=== PATIENT | female | born 1940 | race Caucasian/White ===

== ENCOUNTER → 2022-06-14 | Outpatient (CLI) | payer MEDICARE, BC, SELFPAY ==
[2022-06-14 15:26] LABS: Anion Gap 8 (5-15); BUN 17 mg/dL (7-18); BUN/Creat Ratio 18.3 RATIO (10-20); Calcium,Total 9.4 mg/dL (8.5-10.1); Chloride 101 mmol/L (98-107); Creatinine, Serum 0.93 mg/dL (0.55-1.02); EST Glomerular Filtration Rate 61 mL/min (>60); Est Glom Filt Rate - Afr Amer 74 mL/min (>60); Glucose 97 mg/dL (74-106); Potassium 4.4 mmol/L (3.5-5.1); Sodium Level 135 mmol/L (136-145)
== END | disposition home or self-care (01) ==
PROVIDERS: PCP Internal Medicine; Visit Provider Internal Medicine Cardiovascular Disease
DX: R40.0 Somnolence (principal); I27.20 Pulmonary hypertension, unspecified; N18.31 Chronic kidney disease, stage 3a; I35.0 Nonrheumatic aortic (valve) stenosis
CPT/HCPCS: 36415; 80048

== ENCOUNTER → 2022-06-30 | Outpatient (CLI) | payer MEDICARE, BC, SELFPAY ==
--- NOTE | 2022-06-30 10:59 | STRESSREP ---
Stress Test Report Date: 06/30/2022 Procedure: Pharmacologic stress nuclear imaging study Indications: Dyspnea Consent: Per the patient Procedure: The patient underwent pharmacologic (Regadenoson 0.4mg ) evaluation with a peak heart rate of 86 beats per minute (61%predicted maximal heart rate) and a peak blood pressure of 142/80 mmHg. The baseline ECG demonstrated normal sinus rhythm. The peak pharmacologic ECG demonstrated no ischemic changes. Rare PVCs noted. No complaints of chest discomfort during pharmacological infusion or recovery. The examination was discontinued secondary to completion of protocol. Impression: 1. Pharmacologic (Regadenoson) evaluation 2. Peak pharmacologic ECG with no ischemic changes. 3. Rare PVCs. Myocardial perfusion imaging study: Technique: The patient was injected with 11.6 millicuries of technetium 99m Cardiolite and subsequently rest SPECT Cardiolite nuclear imaging was obtained in the horizontal long, vertical long, and short axis views. The patient underwent pharmacologic (Regadenoson) evaluation. The patient was injected with 34.3 millicuries of technetium 99m Cardiolite and subsequently stress SPECT Cardiolite nuclear imaging was obtained in the horizontal long, vertical long, and short axis views. A gated Cardiolite study at peak stress was obtained. Interpretation: Rest and stress SPECT Cardiolite nuclear imaging status post realignment, normalization, and attenuation correction demonstrate mildly reduced tracer uptake in the apex and distal anterior wall. This actually shows improvement on post Lexiscan images. Likely attenuation artifact. The reported LVEF is 77%. Impression: 1. No fixed or reversible ischemic defects noted. 2. The gated Cardiolite study reports an LVEF of 77%. This note was generated with [employer] software. It may contain incorrect words, spelling, and punctuation that were not noted in checking the note before signing.
== END | disposition home or self-care (01) ==
LOC: CVS 07:07
PROVIDERS: PCP Internal Medicine; Referring Provider Internal Medicine Cardiovascular Disease; Visit Provider Internal Medicine Cardiovascular Disease
DX: R06.00 Dyspnea, unspecified (principal); Z20.822 Contact with and (suspected) exposure to COVID-19
CPT/HCPCS: 78452; 87426; 93017; A9500; C9803; A4216; J2785

== ENCOUNTER 2022-07-03 09:44 | Outpatient (CLI) | payer MEDICARE, BC, SELFPAY ==
--- NOTE | 2022-07-03 09:47 | ECHOTEE_ITS ---
Reason For Study: Aortic Stenosis Medication VLADIMIR probe 6VT-D (SN [id number]) passed with minimal difficulty. No complications were noted. Cetacaine Topical Briscoe given X4 orally. Versed 3 mg given slow IVP. Fentanyl 100 mcg given slow IVP. Performed a rapid injection of agitated mix of 9 cc saline and 1cc air to assess for atrial septal defect. Left Ventricle Normal LV size. Left ventricular systolic function is normal. The estimated ejection fraction is 60 %. No regional wall motion abnormalities noted. Right Ventricle Normal RV size. Normal systolic function. Atria Normal atrial septum. The left atrium is mildly enlarged. No thrombus is detected in the left atrial appendage. The right atrium is mildly enlarged. Mitral Valve Mild focal mitral valve calcification. Mild-Moderate (1-2+) eccentric mitral valve insufficiency. Tricuspid Valve Normal tricuspid valve. Aortic Valve Trisinus/trileaflet aortic valve. Mild focal aortic valve calcification. Peak aortic valve gradient 36 mmHg. Mean aortic valve gradient 19 mmHg. Mild to moderate aortic stenosis. Calculated aortic valve area (continuity equation) is 1.2 cm2. Pulmonic Valve Normal pulmonic valve. Vessels Normal aortic root. The pulmonary artery is normal size. Pericardium No pericardial effusion. MMode/2D Measurements & Calculations LVOT diam: 2.0 cm Ao root diam: 3.7 cm Aortic Valve Planimetry: 1.0 cm2 LVOT area: 3.1 cm2 Doppler Measurements & Calculations Ao V2 max: 300.2 cm/sec AI max raquel: 403.0 cm/sec LV V1 max: 118.4 cm/sec Ao max P.1 mmHg AI max P.0 mmHg LV V1 max P.6 mmHg Ao V2 mean: 205.1 cm/sec AI dec slope: 211.0 cm/sec2 LV V1 mean P.4 mmHg Ao mean P.4 mmHg AI P1/2t: 559.4 msec LV V1 mean: 86.5 cm/sec Ao V2 VTI: 77.6 cm LV V1 VTI: 32.7 cm JUDIE(I,D): 1.3 cm2 JUDIE(V,D): 1.2 cm2 SV(LVOT): 102.1 ml ECHO/Echo Transesophageal (VLADIMIR) Interpretation Summary Normal LV size. Left ventricular systolic function is normal. The estimated ejection fraction is 60 %. Mild to moderate aortic stenosis. Mean aortic valve gradient 19 mmHg. Calculated aortic valve area (continuity equation) is 1.2 cm2. Ordering Physician: Jessie Breen Referring Physician: Jessie Breen Performed By: Jaron Maldonado RCS
== END 2022-07-03 12:45 | disposition home or self-care (01) ==
LOC: CVS 09:46
PROVIDERS: PCP Internal Medicine; Referring Provider Internal Medicine Cardiovascular Disease; Visit Provider Internal Medicine Cardiovascular Disease
DX: I35.0 Nonrheumatic aortic (valve) stenosis (principal)
CPT/HCPCS: 93312; 93320; 93325; J7040; A4216

== ENCOUNTER → 2023-02-01 | Outpatient (CLI) | payer MEDICARE, BC, SELFPAY ==
--- NOTE | 2023-02-01 12:50 | CT_ITS ---
STUDY: CT BRAIN WITHOUT CONTRAST REASON FOR EXAM: Female, 82 years old. Head injury due to a fall. RADIATION DOSAGE (If Supplied By Facility): CTDIvol = ( 44.99 ) mGy, DLP = ( 880.47 ) mGycm TECHNIQUE: Transaxial CT imaging of the brain was performed without administration of intravenous contrast material. Individualized dose optimization techniques were used for this CT. COMPARISON: No relevant priors. FINDINGS: Normal soft tissue structures. There is hyperostosis frontalis internus. There is mild cerebral atrophy with widening of the extra-axial spaces and ventricular dilatation. There are areas of decreased attenuation within the white matter tracts of the supratentorial brain, consistent with microvascular disease changes. Normal basal ganglia and thalami. Normal brainstem. Normal cerebellum. There is no intracranial hemorrhage. There are no findings of an acute ischemic infarction. Atherosclerotic changes of the vertebral arteries and cavernous portions of the internal carotid arteries bilaterally. Normal visualized paranasal sinuses. CT/Brain/Head without Contrast IMPRESSION: Chronic involutional changes of the brain. Electronically Signed: Nigel Marina MD at 13:35 EDT ,
== END | disposition home or self-care (01) ==
LOC: CT 12:40
PROVIDERS: PCP Internal Medicine; Referring Provider Nurse Practitioner; Visit Provider Nurse Practitioner
DX: S09.90XA Unspecified injury of head, initial encounter (principal); R42 Dizziness and giddiness; W19.XXXA Unspecified fall, initial encounter
CPT/HCPCS: 70450

== ENCOUNTER → 2023-02-20 | Outpatient (CLI) | payer MEDICARE, BC, SELFPAY ==
--- NOTE | 2023-02-20 10:09 | ECHOD_ITS ---
Version 2 Reason For Study: AORTIC STENOSIS Procedure This was a 2D Doppler, Color Flow transthoracic echocardiogram. Exam performed in department. Left Ventricle Normal LV size. Left ventricular systolic function is normal. The estimated ejection fraction is 60 %. No regional wall motion abnormalities noted. Right Ventricle Normal RV size. Normal systolic function. Atria The left atrium is moderately enlarged. The right atrium is mildly enlarged. Mitral Valve Mild focal mitral valve calcification of the anterior leaflet. There is moderate mitral annular calcification. Moderate (2+) eccentric mitral valve insufficiency. Tricuspid Valve Normal tricuspid valve. Moderately severe (3+) tricuspid valve insufficiency. Pulmonary artery systolic pressure is 74 mmHg. Aortic Valve Trisinus/trileaflet aortic valve. Mild focal aortic valve calcification. Peak aortic valve gradient 17 mmHg. Mean aortic valve gradient 18 mmHg. Mild aortic stenosis. Mild (1+) aortic valve insufficiency. Pulmonic Valve Normal pulmonic valve. Great Vessels Normal aortic root. The pulmonary artery is normal size. Normal inferior vena cava. Pericardium/Pleural No pericardial effusion. MMode/2D Measurements & Calculations LVIDd: 5.3 cm IVSd: 1.1 cm LVOT diam: 1.9 cm LVIDs: 3.2 cm LVPWd: 1.0 cm LVOT area: 2.8 cm2 RVDd: 2.9 cm FS: 40.5 % Ao root diam: 3.3 cm LAV(MOD-bp): 86.4 ml LVAd ap4: 31.2 cm2 LAV(MOD-bp) Indexed: 47.4 ml/m2 LVLd ap4: 7.4 cm LAV(MOD-sp2): 76.7 ml EDV(MOD-sp4): 104.3 ml LAV(MOD-sp4): 93.2 ml EDV(sp4-el): 112.5 ml LVAs ap4: 14.6 cm2 LVLs ap4: 5.3 cm ESV(MOD-sp4): 32.9 ml ESV(sp4-el): 34.4 ml EF(MOD-sp4): 68.4 % EF(sp4-el): 69.4 % LVAd ap2: 29.5 cm2 SV(MOD-sp4): 71.4 ml SV(MOD-sp2): 69.6 ml LVLd ap2: 7.4 cm EDV(MOD-sp2): 96.4 ml EDV(sp2-el): 99.8 ml LVAs ap2: 13.6 cm2 LVLs ap2: 5.5 cm ESV(MOD-sp2): 26.9 ml ESV(sp2-el): 28.6 ml EF(MOD-sp2): 72.1 % SV(sp4-el): 78.1 ml LA dimension(2D): 4.7 cm LA A4 area: 27.5 cm2 RA A4 area: 21.1 cm2 TAPSE: 2.3 cm Time Measurements MV dec time: 0.11 sec Doppler Measurements & Calculations MV E max efraín: 139.3 cm/sec Lat Peak E' Efraín: 8.2 cm/sec Med Peak E' Efraín: 5.0 cm/sec MV A max efraín: 61.8 cm/sec E/E' lat: 17.1 E/E' med: 27.7 MV E/A: 2.3 MV V2 max: 168.2 cm/sec Ao V2 max: 257.9 cm/sec MV max P.3 mmHg MV dec slope: 1298 cm/sec2 Ao max P.7 mmHg MV V2 mean: 75.0 cm/sec Ao V2 mean: 198.9 cm/sec MV mean P.1 mmHg Ao mean P.2 mmHg MV V2 VTI: 37.1 cm Ao V2 VTI: 66.4 cm AV (velocity ratio): 0.51 MVA(VTI): 2.6 cm2 JUDIE(I,D): 1.4 cm2 JUDIE(V,D): 1.4 cm2 AI max efraín: 301.7 cm/sec LV V1 max: 130.8 cm/sec MR max efraín: 567.3 cm/sec AI max P.5 mmHg LV V1 max P.9 mmHg MR max P.7 mmHg AI dec slope: 87.9 cm/sec2 LV V1 mean P.8 mmHg MR mean efraín: 463.4 cm/sec AI P1/2t: 1005 msec LV V1 mean: 92.2 cm/sec MR mean P.4 mmHg LV V1 VTI: 33.7 cm MR VTI: 221.0 cm SV(LVOT): 96.1 ml PA V2 max: 97.0 cm/sec TR max efraín: 416.9 cm/sec PA V2 mean: 67.4 cm/sec TR max P.5 mmHg ECHO/Echo Complete Interpretation Summary Normal LV size. Left ventricular systolic function is normal. The estimated ejection fraction is 60 %. The left atrium is moderately enlarged. Moderate (2+) eccentric mitral valve insufficiency. Pulmonary artery systolic pressure is 74 mmHg. Mild aortic stenosis. Ordering Physician: Jessie Breen Referring Physician: Jessie Breen Performed By: Radha Cai RVT and Student
--- NOTE | 2023-02-20 11:40 | RAD_ITS ---
INDICATION: Dyspnia on exertion EXAMINATION/TECHNIQUE: X-RAY - XR Chest 2 Views COMPARISON: June 09, 2016. FINDINGS: LINES/DEVICES: None. LUNGS: Lungs symmetrically mildly hyperexpanded. Linear atelectasis in the left lower lung. Mild reticular opacification bilateral lower lungs with trace effusions. No pneumothorax. MEDIASTINUM AND CARDIOVASCULAR STRUCTURES: Cardiac silhouette not enlarged. Mild aortic atherosclerosis. BONES AND SOFT TISSUES: Unremarkable. RAD/Chest PA and Lateral IMPRESSION: New reticular opacification throughout the lower lungs which may represent mild edema or interstitial lung disease. Trace effusions. Underlying hyperexpansion as can be seen with chronic obstructive pulmonary disease. Electronically Signed: Wesly Pyle MD at 23:08 EDT ,
[2023-02-20 12:10] LABS: Hematocrit 33.3 % (37-47); Hemoglobin 10.9 g/dL (12.0-15.0); Mean Corp Hgb Conc 32.7 g/dL (32-36); Mean Corpuscular Hgb 29.2 pg (27.0-32.0); Mean Corpuscular Volume 89.3 fL (81-99); Mean Platelet Vol. 10.1 fl (6.2-12.0); Platelet Count 224 K/mm3 (150-450); RBC Distribution Width CV 15.9 % (11.6-14.6); RBC Distribution Width SD 51.9 fl (35.1-43.9); Red Blood Count 3.73 M/mm3 (4.2-5.4); White Blood Count 7.1 K/mm3 (4.4-11.0)
[2023-02-20 12:50] LABS: BNP,B-Type NATRIURETIC PEPTIDE 489.4 pg/mL (0-100)
[2023-02-20 13:22] LABS: Anion Gap 4 (5-15); BUN 21 mg/dL (7-18); BUN/Creat Ratio 23.4 RATIO (10-20); Calcium,Total 8.8 mg/dL (8.5-10.1); Chloride 106 mmol/L (98-107); EST Glomerular Filtration Rate 64 mL/min (>60); Est Glom Filt Rate - Afr Amer 78 mL/min (>60); Glucose 94 mg/dL (74-106); Potassium 4.3 mmol/L (3.5-5.1); Sodium Level 137 mmol/L (136-145)
== END | disposition home or self-care (01) ==
PROVIDERS: Physician Assistant Medical; PCP Internal Medicine; Referring Provider Internal Medicine Cardiovascular Disease; Visit Provider Internal Medicine Cardiovascular Disease
DX: I27.20 Pulmonary hypertension, unspecified (principal); R06.09 Other forms of dyspnea; I35.0 Nonrheumatic aortic (valve) stenosis; E78.2 Mixed hyperlipidemia; I10 Essential (primary) hypertension
CPT/HCPCS: 36415; 71046; 80048; 83880; 85027; 93306